=== PATIENT | female | born 1955 | race Caucasian/White ===

== ENCOUNTER 2018-11-03 10:17 | Emergency (ER) | payer MEDICAID, OTHER ==
[~2018-11-03] VITALS: Ht 160 cm; Wt 80.0 kg
[~2018-11-03 10:17] MED LIST: BEN50 PO; HC30CR25 TOP; HYDR12.53 PO; ONDA4TAB8 PO
[2018-11-03 10:24] VITALS: BP 147/80; PULSE 80; RESP 18; Ht 160 cm; Wt 80.0 kg
[2018-11-03] MEDS ORDERED: ONDANSETRON 4 MG INJ IV STA (10:47)
[2018-11-03] MEDS ORDERED: DIPHENHYDRAMINE 50 MG INJ IV ONE (11:00)
[2018-11-03] MEDS ORDERED: METHYLPREDNISOLONE 125 MG INJ IV ONE (11:00)
[2018-11-03] MEDS ORDERED: SOD CHLORIDE 0.9% 500 ML IV ONE (11:00)
== END 2018-11-03 12:33 | disposition home or self-care (01) ==
LOC: FTE 10:17
DX: R21 Rash and other nonspecific skin eruption (principal); R11.2 Nausea with vomiting, unspecified; I10 Essential (primary) hypertension
CPT/HCPCS: 80048; 81001; 85025; 96361; 96374; 96375; J1200; J2405; J2930; J7040; Z7502